=== PATIENT | female | born 1940 | race Caucasian/White ===

== ENCOUNTER → 2016-12-10 | Outpatient (CLI) | payer OTHER, MEDICARE | LOC: BHFA 11:15 | PROVIDERS: ATTEND Internal Medicine Cardiovascular Disease | DX: I49.3 Ventricular premature depolarization (principal); R07.9 Chest pain, unspecified; E78.5 Hyperlipidemia, unspecified ==

== ENCOUNTER → 2016-12-17 | Outpatient (CLI) | payer OTHER, MEDICARE | LOC: BHFA 09:00 | PROVIDERS: ATTEND Internal Medicine Cardiovascular Disease | DX: I49.3 Ventricular premature depolarization (principal) ==

== ENCOUNTER → 2016-12-18 | Outpatient (CLI) | payer OTHER, MEDICARE | LOC: BHFA 09:15 | PROVIDERS: ATTEND Internal Medicine | DX: R07.9 Chest pain, unspecified (principal); R94.31 Abnormal electrocardiogram [ECG] [EKG] ==

== ENCOUNTER → 2017-01-07 | Outpatient (CLI) | payer OTHER, MEDICARE | LOC: BHFA 09:00 | PROVIDERS: ATTEND Internal Medicine Cardiovascular Disease | DX: I49.3 Ventricular premature depolarization (principal) | CPT/HCPCS: 78452; 93017; A9500; J2785 ==

== ENCOUNTER → 2017-02-11 | Outpatient (CLI) | payer OTHER, MEDICARE | LOC: FCPNEURO 23:14 | PROVIDERS: ATTEND Psychiatry & Neurology Sleep Medicine | DX: G47.33 Obstructive sleep apnea (adult) (pediatric) (principal); G47.39 Other sleep apnea ==

== ENCOUNTER 2017-03-22 18:47 | Emergency (ER) | payer OTHER, MEDICARE ==
[2017-03-22 18:55] VITALS: TEMP 97.9
--- NOTE | 2017-03-22 19:41 | EDPHY ---
H & P Stated Complaint: tripped on "a tray" around 12.30. Landed on right hand and left hip Source: Patient, Family Exam Limitations: No limitations - Personal History Current Tetanus Diphtheria and Acellular Pertussis (TDAP): Yes Tetanus Vaccine Date: 2008 - Medical/Surgical History Hx Asthma: No Hx Chronic Respiratory Disease: No Hx Diabetes: No Hx Cardiac Disease: No Hx Renal Disease: No Hx Cirrhosis: No Hx Alcoholism: No Hx HIV/AIDS: No Hx Splenectomy or Spleen Trauma: No Other PMH: high choles. Bone spur in lower spine from scoliosis. - Social History Smoking Status: Never smoked HPI/ROS: CHIEF COMPLAINT: Fall, low back pain HISTORY OF PRESENT ILLNESS: Patient complains of low back pain status post fall. She slipped around 12:30 p.m., falling on her left hip. She noted a sudden onset of pain in the left hip in the low back. The left hip pain is gone. The low back pain persist. It is mild to moderate at rest. Worse when she attempts to ambulate. It is in the center of the low back over L5 and S1. No numbness or tingling distally. No incontinence. No saddle anesthesia. No weakness of the lower extremities. She is able to bear weight without difficulty or hesitation. She has a history of L5-S1 degenerative disc disease and pseudoarthrosis on the right transverse process of L5. MRI last fall off of this. She sees Dr. Yeboah for Orthopedics. History of osteoporosis on alendronate. No other associated complaints or modifying factors. REVIEW OF SYSTEMS: Ten systems reviewed and are negative unless otherwise noted in the HPI PAST MEDICAL HISTORY: Reviewed, includes osteoporosis SOCIAL HISTORY: Nonsmoker. FAMILY HISTORY: Noncontributory EXAMINATION General Appearance: Alert, no distress Head: normocephalic, atraumatic Eyes: Pupils equal and round, no conjunctival pallor or injection ENT, Mouth: Mucous membranes moist Neck: Normal inspection, supple, non-tender Respiratory: no retractions or distress Cardiovascular: Regular rate. Pulses intact distally with symmetric DP and PT pulses +2 Gastrointestinal: Abdomen is soft and nontender Back: tenderness at L5-Sacrum. No crepitus step-off or deformity. No tenderness of the thoracic or cervical spine. Neurological: A&O, nonfocal, antalgic but steady gait. Skin: Warm and dry, no rash Extremities: Nontender, no pedal edema. Symmetric range of motion of both hips , knees and ankles. No shortening or rotation of the extremities. Psychiatric: Mood and affect normal DIFFERENTIAL DIAGNOSES: Including but not limited to sprain, strain, fracture, dislocation, contusion, degenerative disc disease, sacroiliitis MDM: 7:30 p.m. Mechanical fall this afternoon with acute low back pain. Minimal left hip pain. She is ambulatory in the room but her primary concern is her low back. This is due to previous diagnosis of degenerative disc disease at L5-S1 with discogenic bone marrow edema along with the ligation of the right L5 transverse process, with pseudoarthrosis. She has no evidence of acute cord compression or cauda equina. She is neurovascular intact. She is declining pain medication and in no acute distress. CT scan of the pelvis has been ordered for acute fracture. 8:20 p.m. Notified by radiologist Dr. meza. CT scan of the pelvis reveals only the known chronic findings. No acute fracture. 8:25 p.m. I have re-evaluated the patient. She is resting comfortably, playing cards. We discussed the CT findings and lack of acute findings. She is still declining pain medication. I will provide a prescription for it is filled tomorrow should she feel that she needed. She will follow up with her established orthopedist Dr. Yeboah. She is to return here for worsening pain, numbness, tingling or weakness. She is comfortable with this plan and discharged home stable condition, fully ambulatory without assistance and no evidence of acute cord compression or cauda equina. SUPERVISION: This patient was independently evaluated without direct examination by the attending physician. Case was discussed with attending physician. (Arsh Carl ) Constitutional: Initial Vital Signs Temperature (C) 36.6 C 03/22/17 18:49 Heart Rate 60 03/22/17 18:49 Respiratory Rate 18 03/22/17 18:49 Blood Pressure 110/72 03/22/17 18:49 O2 Sat (%) 94 03/22/17 18:49 O2 Delivery Mode Room Air Allergies/Adverse Reactions: bacitracin Allergy (Verified 02/29/12 13:41) Rash bacitracin zinc [From Neosporin] Allergy (Verified 02/29/12 13:41) Rash benzalkonium chloride [From Neosporin] Allergy (Verified 02/29/12 13:41) Rash gramicidin D [From Neosporin] Allergy (Verified 02/29/12 13:41) Rash hydrocortisone [From Neosporin] Allergy (Verified 02/29/12 13:41) Rash neomycin sulfate [From Neosporin] Allergy (Verified 02/29/12 13:41) Rash Penicillins Allergy (Verified 04/17/11 01:14) polymyxin B [From Neosporin] Allergy (Verified 02/29/12 13:41) Rash polymyxin B sulfate [From Neosporin] Allergy (Verified 02/29/12 13:41) Rash Home Medications: Medication Instructions Recorded SIMVASTATIN [Zocor] 10 mg PO DAILY 04/17/11 Hydrocodone/APAP 5/325 [[place] 5 mg PO Q6 PRN #20 tab 08/17/11 5/325] Prednisone 10 mg PO TID #20 08/17/11 Prednisone 20 mg PO TID #20 tablet 08/17/11 Valacyclovir HCl [Valacyclovir] 1,000 mg PO TID #20 tablet 08/17/11 Meclizine HCl [Meclizine HCl 25 mg 25 mg PO Q6 PRN #20 tab 03/05/14 (RX,OTC)] Hydrocodone/APAP 5/325 [[place] 1 - 2 tab PO Q4H PRN #10 tab 03/22/17 5/325 (*)] Medical Decision Making Other Provider: The patient was evaluated and managed by the Physician Airbrush Artist Photography/ Nurse Practitioner. My co-signature indicates that I have reviewed this chart and I agree with the findings and plan of care as documented. I am the secondary supervising physician. (Susie Parham) Departure - Departure Disposition: Home, Routine, Self-Care Clinical Impression: Fall, Acute low back pain Condition: Good Instructions: Low Back Strain (ED), Degenerative Disc Disease (ED) Additional Instructions: 1. Continue ibuprofen as needed 2. Follow up with established orthopedist early next week 3. Return here for worsening pain, numbness, tingling or weakness Referrals: Nilsa Walsh MD [Primary Care Provider] - As per Instructions Prescriptions: Hydrocodone/APAP 5/325 [[place] 5/325 (*)] 1 - 2 tab PO Q4H PRN #10 tab PRN Reason: Pain, Moderate
[2017-03-22 20:49] VITALS: BP 108/57; PULSE 58; RESP 16; O2SAT 93
== END 2017-03-22 20:48 | disposition home or self-care (01) ==
DX: S39.92XA Unspecified injury of lower back, initial encounter (principal); W01.0XXA Fall on same level from slipping, tripping and stumbling without subsequent striking against object, initial encounter

== ENCOUNTER → 2017-04-22 | Outpatient (CLI) | payer OTHER, MEDICARE | LOC: FCPNEURO 21:00 | PROVIDERS: ATTEND Psychiatry & Neurology Sleep Medicine | DX: G47.33 Obstructive sleep apnea (adult) (pediatric) (principal); G47.39 Other sleep apnea ==

== ENCOUNTER → 2017-09-09 | Outpatient (CLI) | payer OTHER, MEDICARE | LOC: BHFA 10:30 | PROVIDERS: ATTEND Internal Medicine Cardiovascular Disease | DX: I49.3 Ventricular premature depolarization (principal) ==

== ENCOUNTER → 2017-10-28 | Outpatient (CLI) | payer OTHER, MEDICARE | LOC: EDBD 09:14 → FIMAGING 09:14 | PROVIDERS: ATTEND Family Medicine | DX: Z13.820 Encounter for screening for osteoporosis (principal); M85.89 Other specified disorders of bone density and structure, multiple sites; M53.84 Other specified dorsopathies, thoracic region ==

== ENCOUNTER → 2018-05-26 | Outpatient (CLI) | payer OTHER, MEDICARE | LOC: BHFA 14:15 | PROVIDERS: ATTEND Internal Medicine Cardiovascular Disease | DX: I49.3 Ventricular premature depolarization (principal); I34.0 Nonrheumatic mitral (valve) insufficiency; R55 Syncope and collapse; R06.02 Shortness of breath ==

== ENCOUNTER → 2018-06-13 | Outpatient (CLI) | payer OTHER, MEDICARE | LOC: BHFA 08:30 | PROVIDERS: ATTEND Internal Medicine Cardiovascular Disease | DX: R00.1 Bradycardia, unspecified (principal); I49.3 Ventricular premature depolarization | CPT/HCPCS: 78452; 93017; 93225; 93226; A9500; J2785 ==

== ENCOUNTER → 2018-06-23 | Outpatient (CLI) | payer OTHER, MEDICARE | LOC: BHFA 14:00 | PROVIDERS: ATTEND Internal Medicine Cardiovascular Disease | DX: I34.0 Nonrheumatic mitral (valve) insufficiency (principal) ==

== ENCOUNTER 2018-07-21 06:46 | Observation (INO) | payer OTHER, MEDICARE ==
[2018-07-21] MEDS ORDERED: NS 1,000 ML IV ONE (06:49)
[2018-07-21] MEDS ORDERED: DIAZEPAM 5 MG TAB PO ONE (06:49)
[2018-07-21] MEDS ORDERED: diphenhydrAMINE 25 MG CAP PO ONE (06:49)
[2018-07-21 07:28] LABS: PLATELET COUNT 150 10^3/uL (150-400)
[2018-07-21] MEDS ORDERED: VANCOMYCIN HCL/NORMAL SALINE 250 ML IV ONE (07:30)
[2018-07-21 07:43] LABS: PROTIME(PATIENT) 13.4 SEC (12.0-15.0)
[2018-07-21] MEDS ORDERED: IOPAMIDOL (ISOVUE-300) 50 ML VIAL ONE (08:20)
[2018-07-21] MEDS ORDERED: MIDAZOLAM 2 MG/2 ML VIAL ONE ×2 (08:20→10:57)
[2018-07-21] MEDS ORDERED: LIDOCAINE 1% 300 MG/30 ML SDV ONE (08:20)
[2018-07-21] MEDS ORDERED: fentaNYL 100 MCG/2 ML INJ ONE ×2 (08:20→10:56)
[2018-07-21] MEDS ORDERED: BUPIVACAINE 0.5% 30 ML SDV ONE (08:21)
[2018-07-21] MEDS ORDERED: LIDO/EPI 1% **for epidural** 30 ML SDV ONE (08:21)
--- NOTE | 2018-07-21 08:59 | PDPROPOC ---
Sedation Plan of Care Sedation Plan of Care: vital signs stable, mental status noted, patient educated of risks, benefits, alternatives, patient can tolerate sedation ASA Classification: ASA 3 Planned drugs: fentanyl, midazolam Mallampati Score: Class 3 Mallampati Reference Image: Patient passed 3-3-2 rule?: Yes
--- NOTE | 2018-07-21 09:00 | PDHPUP ---
History & Physical Update H&P update statement: This history and physical update is based on an assessment of the patient which was completed after admission or registration (within 24 hours), but prior to the surgery/procedure. H&P update: H&P reviewed & patient examined, no change in patient's condition since H&P completed
[2018-07-21] MEDS ORDERED: ETOMIDATE 40 MG/20 ML INJ ONE (09:47)
--- NOTE | 2018-07-21 12:55 | CPIP ---
DATE OF PROCEDURE: 07/21/2018 PROCEDURE PERFORMED: 1. Dual chamber pacemaker insertion of an MRI compatible device. The device is a Biotronik model Ed ora 8 DRT, serial #[id number]. The ventricular lead is a MRI conditional Biotronik Solia S53 serial #[id number]. The atrial lead is Solia S45, serial #[id number]. 2. Fluoroscopy of pacer. COMPLICATIONS: None. FUSION OPERATOR: Gerry Gallo MD INDICATION/APPROPRIATE USE CRITERIA: The patient has intermittent sinus arrest and pauses with presy ncope in association with those symptoms is thought to be related to symptomatic sick sinus syndrome with documented chronotropic incompetence of her sinus node with no ventricular rates above 90 on a t readmill with associated fatigue and lack of exercise tolerance. PROCEDURE IN DETAIL: After informed consent was obtained and n.p.o. status was confirmed, the region of the left subclavicular fossa was cleaned, prepped, and draped in sterile fashion. Approximately 20 cc of 1% lidocaine was utilized for local anesthesia. Intravenous conscious sedation was accompli shed with intravenous Versed, fentanyl, and etomidate given in doses consistent with conscious sedati on. The skin was sharply incised with a #10 blade. Sharp and blunt dissection were used to perform a pac er pocket overlying the pectoralis major fascia. Local pressure and electrocautery were used for hem ostasis. The pocket was formed overlying the pectoralis major fascia. An 18-gauge Cook needle was u sed to gain access to the left subclavian vein with a retained wire technique. A peel-away sheath wa s advanced over the lateral wire. The ventricular lead was manipulated with care into the right vent ricular apex and screwed into place. The threshold was tested and found to be 1 V at 0.4 msec with l ead impedance of 767 ohms. R-waves were measured 11.3. The lead was sutured in place with 0 Ethibon d after the peel-away sheath was removed. Procedure was repeated for the right atrial lead, which was screwed into place in the right atrial ap pendage. The threshold of the device, pacing threshold was found to be 0.7 at 0.4 with P-wave amplit ude measured 3.2 and a lead impedance of 455 ohms. The lead was sutured in place with 0 Ethibond aft er the peel-away sheath was removed. The pocket was thoroughly checked for bleeding and hemostasis was established. The device was philippe t to the table. The atrial lead serial number was checked and placed in the upper pole lead housing with setscrew firmly applied. This procedure was repeated for the ventricular lead and documented at rial pacing with appropriate ventricular sensing. Device was sutured in place with 0 silk. Skin was then closed with a 3 layered 2-0 and 3-0 Vicryl subcutaneous repair with vertical and horizo ntal mattress sutures, followed by a 4-0 Vicryl subcuticular stitch. Excellent wound edge apposition and hemostasis were documented. The patient tolerated the procedure well without immediate complica tion, returned to the post cath recovery unit in good and stable condition, where a stat postoperativ e EKG and chest x-ray will be obtained. /[id number]/MODL
--- NOTE | 2018-07-21 16:49 | ASMTCMCOM ---
CM Note CM Note Notes: Pt is s/p a planned pacer placement. No therapies ordered. CM will follow for any d/c needs. Date Signed: 07/21/2018 04:48 PM Electronically Signed By:CALVIN Villasenor
[2018-07-21] MEDS: ROSUVASTATIN CALCIUM 10 MG TAB PO SCH (20:30)
[2018-07-21] MEDS: ASPIRIN 81 MG CHEWABLE TAB PO SCH (20:30)
[2018-07-22 04:18] LABS: PLATELET COUNT 144 10^3/uL (150-400)
[2018-07-22] MEDS: ESCITALOPRAM OXALATE 10 MG TAB PO SCH (08:44)
[2018-07-22] MEDS: CYANO/VITAMIN B12 1000 MCG TAB PO SCH (08:44)
[2018-07-22] MEDS: CHOLECALCIFEROL VIT D3 2,000 UNITS TAB/CAP PO SCH (08:44)
[2018-07-22] MEDS: METOPROLOL TARTRATE 25 MG TAB PO SCH ×2 (10:16→20:17)
[2018-07-22] MEDS ORDERED: VANCOMYCIN PHARMACY TO DOSE MISC ONE (11:43)
[2018-07-22] MEDS ORDERED: NS 1,000 ML IV ONE (11:43)
[2018-07-22] MEDS ORDERED: VANCOMYCIN HCL/NORMAL SALINE 250 ML IV ONE ×2 (12:00→14:00)
--- NOTE | 2018-07-22 13:20 | PDHPUP ---
History & Physical Update H&P update statement: This history and physical update is based on an assessment of the patient which was completed after admission or registration (within 24 hours), but prior to the surgery/procedure. H&P update: H&P reviewed & patient examined (ventricular lead impedance is high and needs to be repositioned. X ray reveals less slack in ventricular lead), changes noted
[2018-07-22] MEDS ORDERED: IOPAMIDOL (ISOVUE-300) 50 ML VIAL ONE (13:56)
[2018-07-22] MEDS ORDERED: LIDOCAINE 1% 300 MG/30 ML SDV ONE (13:56)
[2018-07-22] MEDS ORDERED: fentaNYL 100 MCG/2 ML INJ ONE (13:56)
[2018-07-22] MEDS ORDERED: LIDO/EPI 1% **for epidural** 30 ML SDV ONE (13:57)
[2018-07-22] MEDS ORDERED: BUPIVACAINE 0.5% 30 ML SDV ONE (13:57)
[2018-07-22] MEDS ORDERED: MIDAZOLAM 2 MG/2 ML VIAL ONE (13:57)
--- NOTE | 2018-07-22 14:22 | ECHO ---
[email or web address] [address] [address] Main: [phone] Fax: Transthoracic Echocardiogram Name: JIMMY EL MR#: [id number] Study Date: 07/22/2018 Study Time: 11:41 AM Date of : 1940 Age: 78 year(s) Height: ( ) Weight: ( ) BSA: Gender: Female Examination: Limited Echo Indication: increasing RV lead impedances post pacer; eval for pericardial effusion Image Quality: Adequate Contrast: Requested by: Deena Weeks BP: 95 mmHg/41 mmHg Heart Rate: Rhythm: Indication: increasing RV lead impedances post pacer; eval for pericardial effusion Procedure Staff Data Transcriber: Anahy Barkley [facility] Reading Physician: Deena Weeks MD Requesting Provider: Conclusions: Normal size right ventricle. Normal RV function. There is a pacemaker lead noted in the right ventricle. Trivial pericardial effusion. There is pericardial fat. Directed study to re-evaluate for new pericardial effusion post pacemaker implant. Minimal effusion very similar to May 2018. No evidence of RV lead perforation. Measurements: Chambers Valvular Assessment AV/MV Valvular Assessment TV/PV Normal Normal Normal Name Value Range Name Value Range Name Value Range IVSd (2D): 0.8 cm (0.6 cm-1.1 cm) LVDd (2D): 4.2 cm (3.9 cm-5.3 cm) LVDs (2D): 3.0 cm (2.1 cm-4 cm) LVPWd (2D): 0.8 cm ( - ) LVEF (2D): 53 (>=54 %) Continued Measurements: Findings: Right Ventricle: Normal size right ventricle. Normal RV function. There is a pacemaker lead noted in the right ventricle. Patient: JIMMY EL Study Date: 07/22/2018 Page 1 of 2 11:41 AM Pericardium: Trivial pericardial effusion. There is pericardial fat. (No Signature Object) Patient: JIMMY EL Study Date: 07/22/2018 Page 2 of 2 11:41 AM [id number]
[2018-07-22] MEDS ORDERED: ETOMIDATE 40 MG/20 ML INJ ONE (14:59)
[2018-07-22] MEDS ORDERED: oxyCODONE IR 5 MG TAB PO PRN (16:05)
[2018-07-22] MEDS: ASPIRIN 81 MG CHEWABLE TAB PO SCH (20:17)
[2018-07-22] MEDS: ROSUVASTATIN CALCIUM 10 MG TAB PO SCH (20:17)
--- NOTE | 2018-07-23 04:04 | CPIP ---
DATE OF PROCEDURE: 07/22/2018 PROCEDURE PERFORMED: Repositioning of right ventricular lead. COMPLICATIONS: None. INDICATION FOR PROCEDURE/APPROPRIATE USE CRITERIA: Briefly, the patient underwent dual-chamber pacem stan insertion for an indication of intermittent sinus arrest and pauses with presyncope. The patien t was admitted overnight, and on evaluation of the leads in the morning, the ventricular lead was not ed to have a high lead impedance. The chest x-ray revealed evidence that the ventricular lead had pu lled back and had less slack than would be appropriate. For this reason, it was felt that we should bring the patient back in and reposition the lead. PROCEDURE IN DETAIL: After informed consent was obtained, n.p.o. status was confirmed, the region of the left supraclavicular fossa was cleaned, prepped, and draped in sterile fashion. Approximately 2 5 cc of 1% lidocaine was utilized for local anesthesia. The skin was sharply incised on the original incision line with a #10 blade. Electrocautery and local pressure were used for hemostasis. The ol d suture material was removed when it was identified. The pocket was exposed. The device suture was removed and then the device was taken out of the pocket. The pocket was thoroughly flushed and chec ked for bleeding. Hemostasis was established. The sutures were then removed. The ventricular lead was removed from the pulse generator of the device and was repositioned in the RV apex, screwed into place, and found to have a ventricular threshold after repositioning of 0.8 at 0.4 msec, sensing 8.6 mV R waves with a lead impedance of 785 ohms which was stable. The lead was sutured into place with 0 Ethibond, and the lead was placed in the lower pole lead housing of the pulse generator and the set screw firmly applied. We tightened down the atrial lead as well. The device was then sutured into place with 0 Ethibond, and the skin was closed with a 2-0 and 3-0 Vicryl vertical and horizontal rosalinda ress suture, followed by a 4-0 Monocryl subcuticular stitch. Excellent wound edge apposition and hem ostasis were documented. The patient tolerated the procedure well and returned to the postcath [facility] unit in good stable and condition, where a stat postoperative chest x-ray will be obtained. FINAL IMPRESSION: Successful right ventricular lead revision for indication of inadequate slack and high lead impedance. /[id number]/MODL
[2018-07-23] MEDS ORDERED: ACETAMINOPHEN 500 MG TAB PO PRN (06:12)
[2018-07-23] MEDS: METOPROLOL TARTRATE 25 MG TAB PO SCH (08:02)
[2018-07-23] MEDS: CYANO/VITAMIN B12 1000 MCG TAB PO SCH (08:02)
[2018-07-23] MEDS: ESCITALOPRAM OXALATE 10 MG TAB PO SCH (08:02)
[2018-07-23] MEDS: CHOLECALCIFEROL VIT D3 2,000 UNITS TAB/CAP PO SCH (08:13)
[2018-07-23] MEDS ORDERED: NS 500 ML IV SCH (12:45)
[2018-07-23 13:22] LABS: PLATELET COUNT 124 10^3/uL (150-400)
--- NOTE | 2018-07-23 13:42 | GDS ---
SUPERVISING BUCKLE INSPECTOR: Gerry Gallo MD ADMISSION DIAGNOSES: 1. Symptomatic bradycardia. 2. Chronotropic incompetency. 3. Hyperlipidemia. 4. Tricuspid regurgitation. 5. Mitral regurgitation. 6. Premature ventricular contractions. DISCHARGE DIAGNOSES: 1. Symptomatic bradycardia. 2. Chronotropic incompetency. 3. Status post dual-chamber [place] pacemaker implantation with right atrial and right ventricular lead (Biotronik). 4. Hyperlipidemia. 5. Tricuspid regurgitation. 6. Mitral regurgitation. 7. Premature ventricular contractions. PROCEDURES PERFORMED DURING HOSPITALIZATION: 1. Electrocardiogram. 2. Permanent pacemaker implantation, Biotronik, with right atrial and right ventricular leads. 3. Pacemaker right ventricle lead revision. 4. Echocardiogram. 5. Chest x-ray. BRIEF HISTORY: Please see H and P. Briefly, the patient is an 78-year-old female. She has been having significant episodes of lightheadedness related to her bradycardia. She is also known to have chronotropic incompetence, which has been noted on 2 separate treadmill testings. She is also noted to have frequent PVCs, which were unable to be treated related to her bradycardia. She did see her primary parts clerk plant maintenance, Dr. Weeks, who evaluated her and felt pacemaker implantation will be appropriate. This was scheduled to be done by Dr. Gallo. HOSPITAL COURSE: Patient was admitted through CVC, prepped for procedure, and taken to the cardiac catheterization lab on July 21. There, Dr. Gallo implanted a Biotronik pacemaker with right atrial and right ventricular leads. No apparent complication. Patient was transferred back to the CVC and ultimately to the PCU overnight. There, she was stable. On the following morning, July 22, device check was done showing higher impedance of her RV lead. Chest x-ray was done, which appeared to show old RV lead had pulled back. A limited echo was also done at that time showing normal RV size, normal RV function, trivial pericardial effusion, pericardial fat. Echocardiogram was very similar to previous echocardiogram done 1 month ago. Due to her higher impedance, it was felt that she should have a lead revision done before discharge. She was taken back to the cardiac catheterization lab, where Dr. Gallo revised the RV lead, again, no complications. Patient was taken back to the CVC and ultimately to PCU. Overnight, she has been up and walking the unit without difficulty. She denies of any chest pain, pressure pain. She has maintained a pace with intrinsic ventricular beat, occasional premature ventricular contraction has been noted. She was started on beta-brittney on July 22 and overnight device check showed that she did have a reduction in her PVC burden. PHYSICAL EXAMINATION: GENERAL APPEARANCE: Today, medium built, well-groomed female. She is alert and oriented to person, place, time, and situation. Appears to be under no acute distress. VITAL SIGNS: Current: Blood pressure 104/46, heart rate of 65, respirations 17 saturating 92% on room air, temperature 36.4 degrees Celsius. HEENT: Head is normocephalic. Lips and tongue are pink and moist with no signs of cyanosis. Conjunctivae pink. NECK: Trachea is midline, +2 carotid pulses bilateral. No auscultated bruits. No jugular vein distention. RESPIRATORY: Lungs are clear to auscultation. No rhonchi, rales or wheezes. No accessory muscle use. No intercostal muscle retraction noted. CARDIAC: Regular rate, regular rhythm, S1, S2. No S3, S4, gallops, rubs, or murmurs noted. ABDOMEN: Soft, nontender. Bowel sounds x4 quadrants. No organomegaly. No palpable masses. SKIN: [place], warm, dry. No cyanosis. No clubbing,. No peripheral edema. VASCULAR: +2 carotids bilateral, +2 radials bilateral, +1 dorsal pedal and posterior tibial pulses bilateral. PACEMAKER INSERTION SITE: Left anterior chest just distal to the clavicle on mid clavicular line, incision intact with Steri-Strips. No redness, swelling, drainage, ecchymosis, or hematoma. Dressing change done at this time. LABORATORY STUDIES: Drawn yesterday showed WBC of 7.98, hemoglobin 14.2, hematocrit 40.7, platelet count of 144. Sodium 134, potassium 4.3, chloride 107 , CO2 of 22, BUN 16, creatinine 0.7, glucose 92, calcium 9.1. PROCEDURES/STUDIES: 1. Pacemaker implantation and lead revision as mentioned above. 2. Echocardiogram as mentioned above. 3. Morning chest x-ray showing no delayed pneumothorax, chronic bronchitis, but no acute cardiopulmonary process. 4. Electrocardiogram done last evening after device check showing a paced rhythm with intrinsic beat, leftward axis, no significant ST or T-wave abnormalities, occasional premature ventricular contraction, unifocal. 5. Device check done by [employer] representative today showing device functioning within normal limits. Normal impedance. DISCHARGE DISPOSITION: Patient will be discharged home in stable condition. She is under activity restrictions, not lifting more than 10 pounds with the left arm for the next 6 weeks and no lifting left arm higher than shoulder height for the next 6 weeks. DISCHARGE MEDICATIONS: Please see discharge medication reconciliation sheet. Note, she has been resumed on all her home medications, and in addition of metoprolol tartrate at 12.5 mg p.o. b.i.d. DISCHARGE INSTRUCTIONS: Post-pacemaker implantation discharge instructions went over with the patient, including monitoring for signs of infection, bleeding precautions, activity restrictions, and medication compliancy. Patient verbalized understanding and has no questions or concerns at this time. She has a device check set up for next week, will follow up with JULIANNE Del Toro of our group in the next 2 weeks. Patient has been told that if any problems or concerns come up post-discharge, she is to notify our office or return to the hospital. ADDENDUM TO NOTE: Prior to discharge hospital, patient was walking around, became lightheaded. She is noted to have lower systolic blood pressures in high 80s. Telemetry showed she was having bigeminal PVCs. Is stat limited echo showing normal LV systolic function, unchanged from prior day. No acute findings. Blood work was repeated, showing no significant anemia, normal electrolyte renal function. Magnesium was 1.9, which was replaced. Patient was given 500 mL saline. Had no further episodes bigeminy. Had walked around the unit several times, without any further symptoms. Vital signs were stable, and was discharged home. Total time spent on discharge: Greater than 30 minutes. /[id number]/MODL MTDD
[2018-07-23 14:30] VITALS: BP 119/54
--- NOTE | 2018-07-23 14:30 | ECHO ---
[email or web address] [address] [address] Main: [phone] Fax: Transthoracic Echocardiogram Name: JIMMY EL MR#: [id number] Study Date: 07/23/2018 Study Time: 01:18 PM Date of : 1940 Age: 78 year(s) Height: ( ) Weight: ( ) BSA: Gender: Female Examination: Limited Echo Indication: Eval for pericardial effusion post pacemaker/Hypotension Image Quality: Contrast: Requested by: Macario Garcia BP: 88 mmHg/42 mmHg Heart Rate: Rhythm: Indication: Eval for pericardial effusion post pacemaker/Hypotension Procedure Staff Weight Tester: Sharon Rosen [facility] Reading Physician: Deena Weeks MD Requesting Provider: Conclusions: Normal global systolic LV function. There is a pacemaker lead noted in the right ventricle. No pericardial effusion. Compared with 07/22/2018 overall similar findings Measurements: Chambers Valvular Assessment AV/MV Valvular Assessment TV/PV Normal Normal Normal Name Value Range Name Value Range Name Value Range Continued Measurements: Findings: Left Ventricle: Normal global systolic LV function. Right Ventricle: There is a pacemaker lead noted in the right ventricle. The pacemaker wire is noted at the RV apex.. Pericardium: No pericardial effusion. (No Signature Object) Patient: JIMMY EL Study Date: 07/23/2018 Page 1 of 1 01:18 PM [id number]
[2018-07-23] MEDS ORDERED: MAGNESIUM SULF 1 GM/DEXTROSE 100 ML IV ONE (14:41)
--- NOTE | 2018-07-24 09:01 | CPEKG ---
Test Reason : OPEN Blood Pressure : / mmHG Vent. Rate : 057 BPM Atrial Rate : 056 BPM P-R Int : 117 ms QRS Dur : 092 ms QT Int : 490 ms P-R-T Axes : 058 072 043 degrees QTc Int : 478 ms Sinus arrhythmia Ventricular premature complex Probable left atrial enlargement Minimal ST depression, inferior leads Confirmed by Shahriar Horton ([id number]) on 07/24/2018 9:00:46 AM Referred By: Confirmed By:Shahriar Horton
--- NOTE | 2018-07-24 09:07 | CPEKG ---
Test Reason : OPEN Blood Pressure : / mmHG Vent. Rate : 069 BPM Atrial Rate : 061 BPM P-R Int : 155 ms QRS Dur : 089 ms QT Int : 454 ms P-R-T Axes : 092 080 027 degrees QTc Int : 487 ms Atrial-paced complexes Multiple ventricular premature complexes Borderline T wave abnormalities Minimal ST elevation, anterior leads Atrial pacing is new in comparison to prior Confirmed by Shahriar Horton ([id number]) on 07/24/2018 9:07:05 AM Referred By: Confirmed By:Shahriar Horton
--- NOTE | 2018-07-24 09:15 | CPEKG ---
Test Reason : OPEN Blood Pressure : / mmHG Vent. Rate : 075 BPM Atrial Rate : 062 BPM P-R Int : 125 ms QRS Dur : 087 ms QT Int : 427 ms P-R-T Axes : 100 088 010 degrees QTc Int : 477 ms Atrial-paced complexes Multiple ventricular premature complexes Borderline right axis deviation Minimal ST depression, inferior leads Minimal ST elevation, anterior leads Confirmed by Shahriar Horton ([id number]) on 07/24/2018 9:15:21 AM Referred By: Confirmed By:Shahriar Horton
--- NOTE | 2018-07-24 09:28 | CPEKG ---
Test Reason : OPEN Blood Pressure : / mmHG Vent. Rate : 060 BPM Atrial Rate : 000 BPM P-R Int : 128 ms QRS Dur : 085 ms QT Int : 408 ms P-R-T Axes : 093 075 034 degrees QTc Int : 408 ms Atrial-paced complexes Ventricular trigeminy Confirmed by Shahriar Horton ([id number]) on 07/24/2018 9:27:26 AM Referred By: Confirmed By:Shahriar Horton
[2018-07-26] MEDS ORDERED: ALENDRONATE SODIUM 70 MG TAB PO SCH (07:00)
== END 2018-07-23 17:05 | disposition home or self-care (01) ==
LOC: FCATH 06:46 → F2W 09:48 → UNDODISOB 07-23 12:18
PROVIDERS: ADMIT Internal Medicine Cardiovascular Disease; ATTEND Internal Medicine Cardiovascular Disease
PROC: 0JH606Z Insertion of Pacemaker, Dual Chamber into Chest Subcutaneous Tissue and Fascia, Open Approach (ICD-10-PCS; principal; 2018-07-21)
PROC: 02H63JZ Insertion of Pacemaker Lead into Right Atrium, Percutaneous Approach (ICD-10-PCS; principal; 2018-07-21)
PROC: 02HK3JZ Insertion of Pacemaker Lead into Right Ventricle, Percutaneous Approach (ICD-10-PCS; principal; 2018-07-21)
PROC: 02WA3MZ Revision of Cardiac Lead in Heart, Percutaneous Approach (ICD-10-PCS; 2018-07-22)
DX: I49.5 Sick sinus syndrome (principal); I45.89 Other specified conduction disorders; E78.5 Hyperlipidemia, unspecified; I08.1 Rheumatic disorders of both mitral and tricuspid valves; I49.3 Ventricular premature depolarization
CPT/HCPCS: 33208; 33215; 71045; 71046; 93005; 93308; C1785; C1898; J1200; J2250; J3010; J3370; J3475; Q9967

== ENCOUNTER 2018-09-05 11:38 | Emergency (ER) | payer OTHER, MEDICARE ==
[2018-09-05 12:37] LABS: PLATELET COUNT 166 10^3/uL (150-400)
--- NOTE | 2018-09-05 12:37 | EDPHY ---
H & P Stated Complaint: N/V and dizziness earlier this morning Time Seen by Provider: 09/05/18 11:41 HPI/ROS: CHIEF COMPLAINT: "I think it's vertigo" HISTORY OF PRESENT ILLNESS: This is an 78 year old female who arrives with dizziness that began this morning and has markedly improved since its onset. She tells me that this began when she was looking down--she developed some ringing in her ears, dizziness, felt as if she might faint. When she got up she was off balance, had to hold on to furniture. She vomited twice. She is no longer feeling dizzy or off balance. She does not have a sensation of spinning. She was transported by ambulance and received zofran en route. She has no nausea and has not vomited again. She denies any current change in symptoms with head movement or change of position. She does not have headache, change in hearing, earache, change in vision, confusion. 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 She denies numbness or focal weakness, but states that she feels diffusely weak on arrival in the ED. Aside from diffuse weakness she has no other current complaints. REVIEW OF SYSTEMS: A ten system review of systems was performed and is negative with the exception of the items mentioned in the HPI. She also reports hip and LBP--not new. She takes ibuprofen for this prn. Past medical/surgical history: 1. 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 No tobacco, illicits. General Appearance: Alert. Vital signs reviewed. Eyes: Pupils equal and round, no conjunctival injection, no discharge. Anicteric. ENT, Mouth: Mucous membranes are moist, no oropharyngeal erythema or edema. Neck: No lymphadenopathy, supple. Respiratory: Lungs are clear to auscultation; no wheezes, rales, or rhonchi. Cardiovascular: Regular rate and rhythm; no murmur, rub, or gallop. Gastrointestinal: Abdomen is soft and nontender, no masses or organomegaly, bowel sounds normal. Skin: Warm and dry, no rashes on exposed skin, normal color. Back: Nontender to palpation over the thoracolumbar spine. No CVAT. Extremities: No lower extremity edema, no calf tenderness or swelling. Neurological: Alert and oriented. Moving all four extremities easily and equally. Cranial nerves II through XII are examined and are intact (visual acuity not tested). Strength is 5 over 5 bilaterally with testing of all major motor groups. Sensation is intact to light touch over all 4 extremities. Deep tendon reflexes are 2+ in the biceps and knees bilaterally. Gait is normal. [id number] is performed accurately. Psychiatric: Normal affect. - Personal History Current Tetanus Diphtheria and Acellular Pertussis (TDAP): Yes Tetanus Vaccine Date: 2008 - Medical/Surgical History Hx Asthma: No Hx Chronic Respiratory Disease: No Hx Diabetes: No Hx Cardiac Disease: No Hx Renal Disease: No Hx Cirrhosis: No Hx Alcoholism: No Hx HIV/AIDS: No Hx Splenectomy or Spleen Trauma: No Other PMH: high cholesterol, Bone spur in lower spine from scoliosis, shingles, osteopenia, anxiety, central sleep apnea. Pacer for low HR. - Social History Smoking Status: Never smoked Constitutional: Initial Vital Signs Temperature (C) 36.7 C 09/05/18 11:42 Heart Rate 81 09/05/18 11:42 Respiratory Rate 18 09/05/18 11:42 Blood Pressure 143/56 H 09/05/18 11:42 O2 Sat (%) 98 09/05/18 11:42 O2 Delivery Mode Room Air Allergies/Adverse Reactions: bacitracin Allergy (Verified 02/29/12 13:41) Rash bacitracin zinc [From Neosporin] Allergy (Verified 02/29/12 13:41) Rash benzalkonium chloride [From Neosporin] Allergy (Verified 02/29/12 13:41) Rash gramicidin D [From Neosporin] Allergy (Verified 02/29/12 13:41) Rash hydrocortisone [From Neosporin] Allergy (Verified 02/29/12 13:41) Rash neomycin sulfate [From Neosporin] Allergy (Verified 02/29/12 13:41) Rash Penicillins Allergy (Verified 04/17/11 01:14) polymyxin B [From Neosporin] Allergy (Verified 02/29/12 13:41) Rash polymyxin B sulfate [From Neosporin] Allergy (Verified 02/29/12 13:41) Rash Home Medications: Medication Instructions Recorded Alendronate Sodium [Fosamax 70 MG 70 mg PO SA@0700 07/14/18 (*)] Aspirin [Aspirin 81mg (*)] 81 mg PO HS 07/14/18 Cholecalciferol Vit D3 [Vitamin D3 4,000 units PO DAILY 07/14/18 2000 units tab (OTC)] Cyanocobalamin [Vitamin B12 (*)] 1,000 mcg PO DAILY 07/14/18 Escitalopram Oxalate [Lexapro 10 10 mg PO DAILY 07/14/18 MG] Herbals/Supplements -Info Only 1 ea PO DAILY 07/14/18 Rosuvastatin Calcium [Crestor] 5 mg PO HS 07/14/18 Acetaminophen [Tylenol ES 500 mg 1,000 mg PO Q8H PRN tab 07/23/18 (*)] Metoprolol Tartrate [Lopressor 25 12.5 mg PO BID #30 tab 07/23/18 mg (*)] Medical Decision Making ED Course/Re-evaluation: [age] year old with dizziness and vomiting, mostly resolved by the time she arrives in ED. Similar episode in 1994, except that she did not vomit at that time. EKG shows paced rhythm. I do not suspect pacer malfunction. Features of today's presentation are consistent with vertigo, but this is not classic vertigo. She did not have dizziness in the ED and did not feel that she needed any medication. No further nausea or vomiting. Head Ct discussed with Dr. Alexandre. CT shows hyperdensity right cerebellar hemisphere, corresponding in location to "blooming" seen on MRI in 2013. This is thought to be chronic microhemorrhage or calcium, but acute hemorrhage cannot be definitively excluded based on this study. She is unable to undergo MRI now because of pacemaker. She understands that this study has an abnormality and that cerebellar bleeding could account for today's symptoms-- and that cerebellar bleeding is potentially life threatening. She does not take anti-coagulants and has not had any falls or head trauma. Patient ambulated to the bathroom at 12:35 p.m.. She was not off balance and tells me that the room was not spinning. However, she did not feel normal while walking, she states that she she felt a little bit "off". She received one liter IVF NS. She was observed until 3 PM and is comfortable returning home, feeling better. I have reviewed the danger signs with her that should prompt her to have immediate re-evaluation. I encouraged close follow up with her PCP. Differential Diagnosis: Dizziness including but not limited to peripheral and central causes of vertigo , orthostatic causes including dehydration, and blood loss. - Data Points Laboratory Results: Laboratory Results 09/05/18 11:50 09/05/18 11:50 Departure - Departure Disposition: Home, Routine, Self-Care Clinical Impression: Dizzy Condition: Good Additional Instructions: I am giving you some information about vertigo, although I do not think that you had classic vertigo today. I am glad that you are feeling back to normal but if you have any more dizziness , if you feel off balance again, if you develops severe headache or have new numbness or weakness, you should be re-evaluated. Please let Dr. Walsh know about today's visit and follow up with her. Referrals: Nilsa Walsh MD [Primary Care Provider] - As per Instructions
[2018-09-05 13:57] VITALS: BP 115/54
--- NOTE | 2018-09-07 22:49 | CPEKG ---
Test Reason : OPEN Blood Pressure : / mmHG Vent. Rate : 072 BPM Atrial Rate : 072 BPM P-R Int : 143 ms QRS Dur : 080 ms QT Int : 417 ms P-R-T Axes : 092 087 058 degrees QTc Int : 457 ms Atrial-paced rhythm Borderline right axis deviation Confirmed by Rajwinder May ([id number]) on 09/07/2018 10:48:44 PM Referred By: Confirmed By:Rajwinder May
== END 2018-09-05 15:01 | disposition home or self-care (01) ==
LOC: EDUNIT#
DX: R42 Dizziness and giddiness (principal); E78.00 Pure hypercholesterolemia, unspecified; F41.9 Anxiety disorder, unspecified; G47.31 Primary central sleep apnea; M41.9 Scoliosis, unspecified; M25.78 Osteophyte, vertebrae; M85.80 Other specified disorders of bone density and structure, unspecified site; Z95.0 Presence of cardiac pacemaker

== ENCOUNTER → 2019-01-27 | Outpatient (CLI) | payer OTHER, MEDICARE ==
[~2019-01-27] MED LIST: GADOBUTROL 10 ML VIAL IVP ONE
== END ==
LOC: FIMAGING 08:14
PROVIDERS: ATTEND Family Medicine
DX: R53.81 Other malaise (principal); R53.83 Other fatigue; R90.89 Other abnormal findings on diagnostic imaging of central nervous system
CPT/HCPCS: 70553; A9585

== ENCOUNTER → 2019-03-04 | Outpatient (CLI) | payer OTHER, MEDICARE | LOC: FIMAGING 09:18 ==

== ENCOUNTER → 2019-03-24 | Outpatient (CLI) | payer OTHER, MEDICARE | LOC: FIMAGING 08:35 ==